=== PATIENT | male | born 1960 | race African-American/Black ===

== ENCOUNTER 2017-01-30 22:56 | Emergency (ER) | payer BC, OTHER ==
[~2017-01-30] VITALS: Ht 182.9 cm; Wt 77.1 kg
[~2017-01-30 22:56] MED LIST: METO-169; TRIATAB3
[2017-01-31 01:10] VITALS: BP 119/86
[2017-01-31] MEDS ORDERED: methylPREDNISolone SOD SUCC 125 MG/2 ML VL IM ONE (03:15)
== END 2017-01-31 03:44 | disposition home or self-care (01) ==
LOC: ER 22:56
DX: S46.821A Laceration of other muscles, fascia and tendons at shoulder and upper arm level, right arm, initial encounter (principal); M62.838 Other muscle spasm; I10 Essential (primary) hypertension; F17.210 Nicotine dependence, cigarettes, uncomplicated; X58.XXXA Exposure to other specified factors, initial encounter; Y93.89 Activity, other specified; Y99.8 Other external cause status; Y92.89 Other specified places as the place of occurrence of the external cause
CPT/HCPCS: 70450; 72125; 96372; 99284; J2930

== ENCOUNTER → 2023-06-27 | Outpatient (CLI) | payer BC ==
[~2023-06-27] VITALS: Ht 182.9 cm; Wt 86.2 kg
[~2023-06-27] MED LIST changes: +ATOR40TA52 PO; +CLOP75TA70 PO; +FUR20T PO; +ISOS1TAB28 PO; +LISI20TA56 PO; +MET25T PO; -METO-169; +METO-289
[2023-06-27] MEDS: ADENOSINE 72 MG in GIVE UN-DILUTED 0 ML IV ONE (11:28)
== END | disposition home or self-care (01) ==
LOC: XYW 09:29
PROVIDERS: ATTEND Specialist
DX: I45.2 Bifascicular block (principal); I25.9 Chronic ischemic heart disease, unspecified; I25.10 Atherosclerotic heart disease of native coronary artery without angina pectoris; I10 Essential (primary) hypertension; E78.5 Hyperlipidemia, unspecified; R06.09 Other forms of dyspnea
CPT/HCPCS: 78452; 93017; A9500; J0153

== ENCOUNTER 2023-06-28 08:01 | Inpatient (IN) | payer BC ==
[~2023-06-28] VITALS: Ht 182.9 cm; Wt 82.8 kg
[~2023-06-28 08:01] MED LIST changes: -ATOR40TA52 PO; -CLOP75TA70 PO; -FUR20T PO; -ISOS1TAB28 PO; -LISI20TA56 PO; -MET25T PO
[2023-06-28 08:23] LABS: Hematocrit 50.3 % (41.0-53.0); Hemoglobin 16.9 g/dL (13.5-17.5); Mean Corpuscular Hemoglobin 29.8 pg (28.0-32.0); Mean Corpuscular Hgb Conc. 33.6 g/dL (32.0-36.0); Mean Corpuscular Volume 88.5 fL (80.0-100.0); Red Blood Cells 5.69 10^6/uL (4.5-5.90); Red Cell Distribution Width 13.6 % (11.8-14.3); White Blood Cell 7.5 10^3/uL (4.4-10.8)
[2023-06-28 08:25] LABS: Band Neutrophils % (manual) 0; Basophils % (manual) 0 (0.0-2.0); Blast Cells 0; Metamyelocytes % 0; Myelocytes % 0; Promyelocytes % 0
[2023-06-28 08:30] VITALS: PULSE 85; RESP 29; O2SAT 100
[2023-06-28] MEDS: NITROGLYCERIN 2% OINT 1GM PKG TD STA (08:32)
[2023-06-28] MEDS: ASPirin 81 mg TAB PO ONE (08:32)
[2023-06-28 08:33] LABS: Eosinophils % (manual) 3 (0-7); Lymphocytes % (manual) 57 (10.0-50.0); Monocytes % (manual) 10 (0-12); Reactive Lymphocytes 11
[2023-06-28 08:34] LABS: Platelet Estimate Adequate; RBC Morphology Normal
[2023-06-28 08:41] LABS: Alanine Aminotransferase 20 U/L (7-40); Albumin 4.7 g/dL (3.2-4.8); Alkaline Phosphatase 85 U/L (46-116); Anion Gap 12 (5-15); Aspartate Aminotransferase 34 U/L (13-40); BUN/Creatinine Ratio 7.4 (10.0-20.0); Bilirubin, Total 1.2 mg/dL (0.2-1.0); Blood Urea Nitrogen 9 mg/dL (9-23); Calcium 9.9 mg/dL (8.5-10.1); Carbon Dioxide 23 mmol/L (20-30); Chloride 104 mmol/L (98-107); Glucose 145 mg/dL (74-106); Potassium 3.2 mmol/L (3.5-5.1); Sodium 139 mmol/L (136-145); Total Protein 7.4 g/dL (5.7-8.2)
[2023-06-28 08:53] LABS: INR 1.03 (0.9-1.15); Partial Thromboplastin Time 27.3 SEC (24.5-34.5); Prothrombin Time 10.9 sec (9.3-11.8)
[2023-06-28] MEDS: IOHEXOL 350 MG/ML 100ML IJ ONE (09:41)
[2023-06-28] MEDS ORDERED: FUR20T PO (12:51)
[2023-06-28] MEDS ORDERED: ISOS1TAB28 PO (12:51)
[2023-06-28] MEDS ORDERED: MET25T PO (12:51)
[2023-06-28] MEDS ORDERED: CLOP75TA70 PO (12:51)
[2023-06-28] MEDS ORDERED: ATOR40TA52 PO (12:51)
[2023-06-28] MEDS ORDERED: LISI20TA56 PO (12:51)
[2023-06-28] MEDS ORDERED: HYDROcodone-ACET 5/325MG TAB PO PRN (13:00)
[2023-06-28] MEDS ORDERED: NITROGLYCERIN 0.4 MG SL TAB SL PRN (13:00)
[2023-06-28] MEDS ORDERED: DOCUSATE SOD 100 MG CAP PO PRN (13:00)
[2023-06-28] MEDS ORDERED: ACETAMINOPHEN 325 MG TAB PO PRN ×2 (13:00)
[2023-06-28] MEDS: MORPHINE SULFATE INJ 2 MG/ml SYRG IV PRN ×2 (13:10→22:48)
[2023-06-28] MEDS: MAALOX PLUS or MAALOX 30 ML PO ONE (16:45)
[2023-06-28] MEDS: CLOPIDOGREL BISULFATE 75 MG TAB PO SCH (16:46)
[2023-06-28] MEDS: NITROGLYCERIN 0.4 MG SL TAB SL PRN (19:48)
[2023-06-28] MEDS: ATORVASTATIN 20 MG TAB PO SCH (22:00)
[2023-06-28] MEDS: LISINOPRIL 20 MG TAB PO SCH (22:00)
[2023-06-29] VITALS (10 sets, daily range): BP systolic 118–165; BP diastolic 73–97; PULSE 63–75; RESP 16–22; TEMP 97.8–98.7; O2SAT 98–100
[2023-06-29 06:17] LABS: Basophils # (auto) 0 10 ^3/uL (0-0.2); Basophils % (auto) 0.7 % (0.0-2.0); Eosinophils # (auto) 0.1 10 ^3/uL (0-0.8); Eosinophils % (auto) 2.6 % (0.0-7.0); Hematocrit 44.8 % (41.0-53.0); Hemoglobin 15.2 g/dL (13.5-17.5); Lymphocytes # (auto) 2.4 10 ^3/uL (0.4-5.4); Mean Corpuscular Hgb Conc. 33.9 g/dL (32.0-36.0); Mean Corpuscular Volume 88.5 fL (80.0-100.0); Monocytes # (auto) 0.4 10 ^3/uL (0-1.3); Monocytes % (auto) 9.6 % (0.0-12.0); Neutrophils # (auto) 1.5 10 ^3/uL (1.6-8.6); Neutrophils % (auto) 33.1 % (37.0-80.0); Nucleated Red Blood Cells % 0.2 %; Red Blood Cells 5.06 10^6/uL (4.5-5.90); Red Cell Distribution Width 13.5 % (11.8-14.3); White Blood Cell 4.5 10^3/uL (4.4-10.8)
[2023-06-29 06:34] LABS: Alanine Aminotransferase 105 U/L (7-40); Alkaline Phosphatase 122 U/L (46-116); Anion Gap 7 (5-15); BUN/Creatinine Ratio 9.3 (10.0-20.0); Blood Urea Nitrogen 9 mg/dL (9-23); Calcium 8.9 mg/dL (8.5-10.1); Carbon Dioxide 26 mmol/L (20-30); Chloride 105 mmol/L (98-107); Glucose 102 mg/dL (74-106); LDL Cholesterol 73 mg/dL (< 100); Potassium 3.2 mmol/L (3.5-5.1); Sodium 138 mmol/L (136-145); Triglycerides 81 mg/dL (< 150)
[2023-06-29 06:35] LABS: Albumin 3.8 g/dL (3.2-4.8); Aspartate Aminotransferase 175 U/L (13-40); Bilirubin, Total 1.7 mg/dL (0.2-1.0); Cholesterol 130 mg/dL (< 200); HDL Cholesterol 38 mg/dL (40-59); Total Protein 6.1 g/dL (5.7-8.2)
[2023-06-29] MEDS: FUROSEMIDE 20 MG TAB PO SCH (09:46)
[2023-06-29] MEDS: METOPROLOL SUCCINATE XL 50 MG TAB PO SCH (09:46)
[2023-06-29] MEDS: ISOSORBIDE MONONITRATE ER 60 MG TAB PO SCH (09:46)
[2023-06-29] MEDS: PANTOPRAZOLE 40 MG TAB PO SCH (09:46)
[2023-06-29] MEDS ORDERED: CLOPIDOGREL BISULFATE 75 MG TAB PO SCH (10:00)
[2023-06-29] MEDS ORDERED: ENOXAPARIN SOD 40 MG/0.4 ML SYRINGE SC SCH (10:00)
[2023-06-29] MEDS: POTASSIUM CHLORIDE 40 MEQ, LIDOCAINE 1% (LOCAL ANESTH.) 4 ML in SODIUM CHL 0.9% 250 ML IV ONE (12:28)
[2023-06-29] MEDS: hydrALAZINE HCL 20 MG/ML VL IV PRN (13:23)
[2023-06-29] MEDS: PANTOPRAZOLE 40 MG/10 ML VIAL INJ IV ONE (13:24)
[2023-06-29] MEDS: ONDANSETRON HCL 4 MG/2 ML VIAL IV PRN (20:26)
[2023-06-30] VITALS (8 sets, daily range): BP systolic 101–143; BP diastolic 66–90; PULSE 59–75; RESP 17–20; TEMP 36.9; O2SAT 94–98
[2023-06-30] MEDS: PANTOPRAZOLE 40 MG/10 ML VIAL INJ IV SCH (09:23)
[2023-06-30] MEDS: ENOXAPARIN SOD 100 MG/1 ML SYRINGE SC ONE (13:05)
[2023-06-30] MEDS: ASPirin-EC 325mg tab PO ONE (13:05)
[2023-06-30] MEDS: ENOXAPARIN SOD 100 MG/1 ML SYRINGE SC SCH (21:29)
[2023-07-01] VITALS (12 sets, daily range): BP systolic 115–167; BP diastolic 52–97; PULSE 64–102; RESP 15–22; TEMP 97.9–98.5; O2SAT 96–99
[2023-07-01] MEDS: LIDOCAINE 2%HCL (LOCAL ANESTH.) INJ 20ML MDV ONE (07:23)
[2023-07-01] MEDS ORDERED: GELATIN 1 SPONGE SIZE 50 TOP ONE (07:23)
[2023-07-01] MEDS: IOHEXOL 350 MG/ML 100ML IJ ONE (07:23)
[2023-07-01] MEDS: HEPARIN IN NS 1000Units/500mL 1,500 ML ONE (07:23)
[2023-07-01] MEDS: MIDAZOLAM HCL 2MG/2ML 2ml VIAL (1mg/ml) ONE ×2 (08:03→08:46)
[2023-07-01] MEDS: fentaNYL CITRATE 100 MCG/2 ML VL ONE ×2 (08:03→08:46)
[2023-07-01] MEDS: ANGIOMAX 250 MG VIAL IV ONE (08:03)
[2023-07-01] MEDS: SODIUM CHL 0.9% 0 ML ONE (08:03)
[2023-07-01] MEDS: hydrALAZINE HCL 20 MG/ML VL ONE (08:26)
[2023-07-01] MEDS: IODIXANOL 320MG/ML 100ML BTL IV ONE (08:34)
[2023-07-01] MEDS: ASPirin 81 mg TAB ONE (09:09)
[2023-07-01] MEDS: ASPirin-EC 81 mg tab PO SCH (10:00)
[2023-07-01] MEDS ORDERED: CLINIMIX PER PHARMACY 0 ML IV SCH (15:45)
[2023-07-01] MEDS ORDERED: DEXTROSE (50%) 50ML SYRG IV SCH (17:15)
[2023-07-01] MEDS: ACCU-CHEK COMFORT CURVE STRIP VI SCH (18:00)
[2023-07-01] MEDS: InsuLIN REG 1unit/0.01ml Soln (100units/ml) SC SCH (18:00)
[2023-07-01] MEDS ORDERED: AMINO ACID INFUSION IN D10W 1,000 ML IV SCH (20:00)
[2023-07-01] MEDS: AMINO ACID INFUSION IN D5W 1,000 ML IV SCH (21:43)
[2023-07-02] VITALS (7 sets, daily range): BP systolic 130–146; BP diastolic 80–98; PULSE 78–89; RESP 18–22; TEMP 36.9; O2SAT 96–97
[2023-07-02 07:39] LABS: Alanine Aminotransferase 46 U/L (7-40); Albumin 4.2 g/dL (3.2-4.8); Alkaline Phosphatase 113 U/L (46-116); Anion Gap 8 (5-15); Aspartate Aminotransferase 33 U/L (13-40); BUN/Creatinine Ratio 9.2 (10.0-20.0); Bilirubin, Total 1.6 mg/dL (0.2-1.0); Blood Urea Nitrogen 10 mg/dL (9-23); Calcium 9.4 mg/dL (8.5-10.1); Carbon Dioxide 26 mmol/L (20-30); Chloride 103 mmol/L (98-107); Glucose 108 mg/dL (74-106); Phosphorus 3.6 mg/dL (2.4-5.1); Potassium 3.6 mmol/L (3.5-5.1); Sodium 137 mmol/L (136-145); Total Protein 6.6 g/dL (5.7-8.2)
[2023-07-02] MEDS ORDERED: ASPI-543 PO (12:25)
[2023-07-02] MEDS ORDERED: PANT40TA2 PO (12:35)
[2023-07-02] MEDS ORDERED: GASTROGRAFIN 120 ML SOL ONE (14:35)
[2023-07-02] MEDS ORDERED: EZ PAQUE SUSP 12OZ BTL ONE (14:35)
== END 2023-07-02 14:00 | disposition home or self-care (01) | DRG 282 ==
LOC: ER 08:01 → TELE 12:48 → TELE-WESTW 21:58
PROVIDERS: ADMIT Nurse Practitioner; ATTEND Nurse Practitioner
PROC: 4A023N7 Measurement of Cardiac Sampling and Pressure, Left Heart, Percutaneous Approach (ICD-10-PCS; principal; 2023-07-01)
PROC: B211YZZ Fluoroscopy of Multiple Coronary Arteries using Other Contrast (ICD-10-PCS; 2023-07-01)
PROC: B215YZZ Fluoroscopy of Left Heart using Other Contrast (ICD-10-PCS; 2023-07-01)
PROC: 4A033BC Measurement of Arterial Pressure, Coronary, Percutaneous Approach (ICD-10-PCS; 2023-07-01)
DX: I21.4 Non-ST elevation (NSTEMI) myocardial infarction (principal); K22.2 Esophageal obstruction; I25.110 Atherosclerotic heart disease of native coronary artery with unstable angina pectoris; E78.5 Hyperlipidemia, unspecified; K21.9 Gastro-esophageal reflux disease without esophagitis; F17.210 Nicotine dependence, cigarettes, uncomplicated; I44.7 Left bundle-branch block, unspecified; I10 Essential (primary) hypertension; I77.810 Thoracic aortic ectasia; H54.61 Unqualified visual loss, right eye, normal vision left eye; I25.10 Atherosclerotic heart disease of native coronary artery without angina pectoris; Z79.02 Long term (current) use of antithrombotics/antiplatelets; Z79.899 Other long term (current) drug therapy; Z79.82 Long term (current) use of aspirin; Z95.5 Presence of coronary angioplasty implant and graft; Z90.49 Acquired absence of other specified parts of digestive tract; Z82.49 Family history of ischemic heart disease and other diseases of the circulatory system
CPT/HCPCS: 36415; 71045; 71275; 76705; 80053; 80061; 82962; 83735; 83880; 84100; 84484; 85007; 85025; 85027; 85379; 85610; 85730; 92610; 93005; 93306; 93458; 93571; 99152; C1894; C9113; G0378; J2001; J2250; J2405; Q9967